=== PATIENT | male | born 1945 | race Caucasian/White ===

== ENCOUNTER 2016-06-03 11:26 | Outpatient (CLI) | payer MEDICARE, BC | END 2016-06-03 11:27 | disposition home or self-care (01) | DRG 556 | LOC: CONVCARE 11:26 | PROVIDERS: ATTEND Orthopaedic Surgery | DX: M25.511 Pain in right shoulder (principal); M11.211 Other chondrocalcinosis, right shoulder; M47.892 Other spondylosis, cervical region | CPT/HCPCS: 72040; 72125 ==